=== PATIENT | male | born 1960 | race Caucasian/White ===

== ENCOUNTER → 2016-08-16 | Outpatient (CLI) | payer BC ==
[~2016-08-16] MED LIST: ADVIL200 MG PO; CLARITIN 1010 MG/TAB PO; DIOVAN 160MG160 MG PO; FLOMAX 0.40.4 MG/CAP PO; NO HOME MEDICATIONS; TYLENOL 500MG500 MG PO
== END ==
LOC: COL.RAD 13:42
DX: Z85.520 Personal history of malignant carcinoid tumor of kidney (principal); Z90.5 Acquired absence of kidney; N40.0 Benign prostatic hyperplasia without lower urinary tract symptoms; R39.198 Other difficulties with micturition

== ENCOUNTER → 2017-02-08 | Outpatient (CLI) | payer BC | LOC: COL.RAD 09:35 | DX: Z85.528 Personal history of other malignant neoplasm of kidney (principal); Z90.5 Acquired absence of kidney ==

== ENCOUNTER → 2017-08-10 | Outpatient (CLI) | payer BC | LOC: COL.RAD 10:25 | DX: Z85.520 Personal history of malignant carcinoid tumor of kidney (principal) ==

== ENCOUNTER → 2018-08-15 | Outpatient (CLI) | payer BC | LOC: COL.RAD 09:18 | DX: C64.9 Malignant neoplasm of unspecified kidney, except renal pelvis (principal) ==

== ENCOUNTER → 2019-08-21 | Outpatient (CLI) | payer BC | LOC: COL.RAD 10:04 | DX: C64.2 Malignant neoplasm of left kidney, except renal pelvis (principal); Z85.520 Personal history of malignant carcinoid tumor of kidney ==

== ENCOUNTER 2020-07-30 14:14 | Emergency (ER) | payer BC ==
[~2020-07-30] VITALS: Ht 182.9 cm; Wt 87.7 kg
[2020-07-30 14:21] VITALS: TEMP 98.7
[2020-07-30] MEDS ORDERED: ZYRTEC5 MG PO (14:36)
[2020-07-30] MEDS ORDERED: DIOVAN 40MG40 MG PO (14:36)
[2020-07-30] MEDS ORDERED: AMOXIL250 M1 PO (14:36)
[2020-07-30 15:56] VITALS: BP 162/91; PULSE 70
== END 2020-07-30 15:56 | disposition home or self-care (01) ==
LOC: COL.ER 14:14
DX: L04.2 Acute lymphadenitis of upper limb (principal); Z85.528 Personal history of other malignant neoplasm of kidney; Z23 Encounter for immunization; Z87.891 Personal history of nicotine dependence

== ENCOUNTER → 2021-04-21 | Outpatient (CLI) | payer BC ==
[~2021-04-21] MED LIST changes: +AMOXIL250 M1 PO; +DIOVAN 40MG40 MG PO; +ZYRTEC5 MG PO
== END ==
LOC: COL.RAD 08:01
DX: C64.2 Malignant neoplasm of left kidney, except renal pelvis (principal); N40.0 Benign prostatic hyperplasia without lower urinary tract symptoms

== ENCOUNTER → 2021-04-29 | Outpatient (CLI) | payer BC | LOC: COL.RAD 11:24 | DX: Z85.520 Personal history of malignant carcinoid tumor of kidney (principal) ==

== ENCOUNTER 2021-07-26 11:14 | Inpatient (IN) | payer BC ==
[~2021-07-26] VITALS: Ht 181.6 cm; Wt 86.9 kg
[2021-08-24] VITALS (9 sets, daily range): BP systolic 114–133; BP diastolic 62–79; PULSE 55–62; TEMP 97.8–98.3
--- NOTE | 2021-08-24 10:10 | NUR ---
The patient ambulated back to [facility] independently using a steady gait and appeared to tolerate the activity well. Vital signs obtained. Consent signed. Assessment completed. 18G IV started in left forearm with one stick, LR Infusing without difficulty. brought back to be at his bedside. Warm blankets provided. Call light is within reach. The patient denies any further needs at this time. Will continue to monitor the patient.
[2021-08-24] MEDS ORDERED: DIOVAN 160MG160 MG PO (10:14)
[2021-08-24] MEDS ORDERED: ZYRTEC 10MG10 MG PO (10:15)
--- NOTE | 2021-08-24 18:14 | NUR ---
Pt arrived to the floor following procedure, he is A/O x4. His breathing is even and unlabored on RA. Pt denies SOB. Lungs CTA. HRR. Pt denies any pain or N/T. Five sites to abdomen CDI. Negro drain in place to L abdomen. Some drainage present, marked. SCD's in place to bilateral legs. Mata DD, dark urine present. IVF infusing into LFA without issues. IS at bedside. No needs at this time. Call light within reach.
--- NOTE | 2021-08-24 20:02 | NUR ---
O2 OFF AT THIS TIME. ASSISTED PT TO CHAIR. SIM WELL. LEE DRAINING DARK RED URINE. RUPA DRAIN INTACT. BLEEDING AT SITE. REINFORCED DRSG. CALL LIGHT IN REACH.
--- NOTE | 2021-08-24 23:30 | NUR ---
AMB IN HALLS EARLIER. SIM WELL.
[2021-08-25] VITALS: BP 127/71; PULSE 54; TEMP 97.6
--- NOTE | 2021-08-25 03:55 | NUR ---
PT HAS BEEN RESTING WELL. LEE TO DD WITH MORE YELLOW URINE NOW THAN RED. RUPA DRAIN HAS NO MORE BLEEDING AT SITE.
[2021-08-25 04:00] VITALS: BP 108/47; PULSE 53; TEMP 98.1
[2021-08-25 06:50] LABS: HEMOGLOBIN 11.8 g/dl (13.5-18.0)
[2021-08-25 06:51] LABS: HEMATOCRIT 36.3 % (42.0-52.0)
--- NOTE | 2021-08-25 07:00 | NUR ---
Pt doing well this morning. He has been up walking in his room. Reported that pain is a little worse since he has been up more, but that it is still tolerable. He has ordered his breakfast. No other needs verbalized, call light within reach
[2021-08-25 07:13] LABS: CALCIUM 9.2 mg/dL (8.4-10.2); CREATININE, serum 1.2 mg/dL (0.72-1.25); POTASSIUM 5.2 mmol/L (3.5-4.5)
[2021-08-25 07:59] VITALS: BP 106/63; PULSE 63; TEMP 98.4
--- NOTE | 2021-08-25 08:11 | NUR ---
Pt tolerated breakfast with no issues. Pt staying very active and is always up walking in his room. Educated he could walk in the halls, just would need a mask. Pt stated that his pain is tolerable, up to a 3/10 with movement. Holding BP med at this time per his request. Will recheck
--- NOTE | 2021-08-25 10:03 | NUR ---
Initial visit; Patient thanked Telex Operator for looking in on him and keeping him in her prayers.
--- NOTE | 2021-08-25 10:23 | NUR ---
Molding Engineer met with patient to discuss discharge planning. Patient lives in [place] with his , Rose (ph#[phone]) and sees Dr. Rodriguez for primary care. Patient obtains medications from [facility] with no difficulties. 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 Patient does not use any DME and reports independence with ADLS. Patient advised his is his DPOA-HC and that he has two children, Louie and Venancio. Patient advised he plans to return home upon discharge.
--- NOTE | 2021-08-25 11:29 | NUR ---
Pt continues to do well with minimal pain complaints. Pt is passing gas. Scheduled medications given per order. No other needs verbalized, call light within reach
[2021-08-25 12:28] VITALS: BP 109/64; PULSE 50
--- NOTE | 2021-08-25 15:19 | NUR ---
Reviewed discharge instructions with pt and his . Reviewed catheter care as well as leg bag teaching. Drain removed educated to leave dressing in place until tomorrow and then okay to shower. Catheter supplies sent home with pt. INT removed from left forearm. Informed to notify nursing when he is ready to go
== END 2021-08-25 15:40 | disposition home or self-care (01) | DRG 708 ==
LOC: INPTSU 08-24 09:06 → SURG 08-24 11:00
PROVIDERS: ADMIT Urology
PROC: 0VT34ZZ Resection of Bilateral Seminal Vesicles, Percutaneous Endoscopic Approach (ICD-10-PCS; 2021-08-24)
PROC: 0VTQ4ZZ Resection of Bilateral Vas Deferens, Percutaneous Endoscopic Approach (ICD-10-PCS; 2021-08-24)
PROC: 8E0W4CZ Robotic Assisted Procedure of Trunk Region, Percutaneous Endoscopic Approach (ICD-10-PCS; 2021-08-24)
PROC: 0VT04ZZ Resection of Prostate, Percutaneous Endoscopic Approach (ICD-10-PCS; principal; 2021-08-24 11:00)
DX: C61 Malignant neoplasm of prostate (principal); I10 Essential (primary) hypertension; E78.5 Hyperlipidemia, unspecified; Z85.528 Personal history of other malignant neoplasm of kidney; Z90.5 Acquired absence of kidney
CPT/HCPCS: A4314; A9284; J0330; J0690; J1100; J1885; J2405; J2704; J2710; J3010; J3475; J7120

== ENCOUNTER → 2023-06-13 | Outpatient (CLI) | payer BC ==
[~2023-06-13] MED LIST changes: +CIALIS20 MG PO; +NORCO 325 MG-51 TAB PO; +ZYRTEC 10MG10 MG PO
== END ==
LOC: COL.RAD 12:57
DX: N50.3 Cyst of epididymis (principal)